=== PATIENT | female | born 1980 | race Caucasian/White ===

== ENCOUNTER 2021-02-27 03:00 | Observation (INO) | payer BC ==
[2021-02-27] MEDS ORDERED: ACETAMINOPHEN 1000 MG/100 ML VIAL IVPB ONE (03:37)
[2021-02-27] MEDS ORDERED: ONDANSETRON 4 MG/2 ML VIAL IVPUSH ONE (03:37)
[2021-02-27] MEDS ORDERED: ACETAMINOPHEN INJECTION 100 ML IVPB ONE (03:44)
[2021-02-27] MEDS ORDERED: ONDANSETRON 4 MG/2 ML VIAL ONE (03:44)
[2021-02-27 03:50] LABS: BASO % 0.2 % (0-2.0); EOS % 0.2 % (0-4.5); HEMATOCRIT 37.5 % (32.4-45.2); HEMOGLOBIN 12.6 GM/dL (10.7-15.3); MCH 29.4 pg (25.7-33.7); MCHC 33.7 g/dl (32.0-36.0); MEAN CELL VOLUME 87.3 fl (80-96); MEAN PLT VOLUME 8.4 fl (7.5-11.1); MONO % 3.6 % (3.8-10.2); PLATELET COUNT 376 10^3/uL (134-434); RBC 4.29 M/mm3 (3.60-5.2); RDW 13.2 % (11.6-15.6); WHITE BLOOD COUNT 11.6 K/mm3 (4.0-10.0)
[2021-02-27] MEDS ORDERED: SODIUM CHLORIDE 0.9% 500 ML INFUS.BAG IV ONE (03:55)
[2021-02-27 04:15] LABS: ALBUMIN 4.1 g/dl (3.4-5.0); BILIRUBIN,TOTAL 0.4 mg/dL (0.2-1); CALCIUM 8.9 mg/dL (8.5-10.1); CREATININE 1.2 mg/dL (0.55-1.3); TOT PROT 8.1 g/dl (6.4-8.2)
[2021-02-27] MEDS ORDERED: CEFTRIAXONE 1 GM in DEXTROSE 5%-WATER - 100 ML IVPB ONE (04:53)
[2021-02-27] MEDS ORDERED: CEFTRIAXONE 1 GM/50 ML BAG ONE (04:55)
[2021-02-27 05:00] LABS: EPI CELLS 23 /uL (0-25.1); HCG,QUALITATIVE URINE Negative; HYALINE CASTS 1 /uL (0-3.1); PH,URINE 6.5 (5.0-8.0); URINE APPEARANCE CLEAR; URINE BACTERIA 369 /uL (0-1359); URINE BILIRUBIN NEGATIVE (NEGATIVE); URINE COLOR YELLOW; URINE GLUCOSE (UA) NEGATIVE (NEGATIVE); URINE KETONE NEGATIVE (NEGATIVE); URINE LEUK ESTERASE NEGATIVE (NEGATIVE); URINE NITRITE NEGATIVE (NEGATIVE); URINE PROTEIN NEGATIVE (NEGATIVE); URINE RBC 151 /uL (0-23.9); URINE WBC 18 /uL (0-25.8)
[2021-02-27] MEDS ORDERED: KETOROLAC TROMETHAMINE 15 MG/ML VIAL IVPUSH ONE (05:12)
[2021-02-27] MEDS ORDERED: KETOROLAC TROMETHAMINE 15 MG/ML VIAL ONE (05:19)
[2021-02-27 08:49] LABS: INR 1.03 (0.83-1.09); PROTHROMBIN TIME (PATIENT) 12.1 SEC (9.7-13.0)
[2021-02-27 08:51] LABS: ACTIVATED PTT 26.3 SECONDS (25.2-36.5)
[2021-02-27] MEDS: TAMSULOSIN HCL 0.4 MG CAP PO SCH (09:43)
[2021-02-27 11:37] VITALS: BMI 43.7
[2021-02-27] MEDS: SODIUM CHLORIDE 1,000 ML IV SCH (16:30)
[2021-02-27] MEDS: HYDROCHLOROTHIAZIDE 25 MG TABLET (FP) PO SCH (16:30)
[2021-02-27] MEDS: KETOROLAC TROMETHAMINE 15 MG/ML VIAL IVPUSH PRN (21:06)
[2021-02-28 08:48] LABS: BASO % 0.2 % (0-2.0); EOS % 1.4 % (0-4.5); HEMATOCRIT 32.1 % (32.4-45.2); LYMPH % 35.9 % (8-40); MCH 30.1 pg (25.7-33.7); MCHC 34.2 g/dl (32.0-36.0); MEAN CELL VOLUME 88.1 fl (80-96); MEAN PLT VOLUME 8.8 fl (7.5-11.1); MONO % 4.9 % (3.8-10.2); NEUT % 57.6 % (42.8-82.8); PLATELET COUNT 288 10^3/uL (134-434); RBC 3.64 M/mm3 (3.60-5.2); WHITE BLOOD COUNT 6.5 K/mm3 (4.0-10.0)
[2021-02-28] MEDS: SODIUM CHLORIDE 1,000 ML IV SCH (09:23)
[2021-02-28] MEDS: TAMSULOSIN HCL 0.4 MG CAP PO SCH (09:23)
[2021-02-28 09:31] LABS: ALBUMIN 2.9 g/dl (3.4-5.0); BILIRUBIN,TOTAL 0.4 mg/dL (0.2-1); CREATININE 0.7 mg/dL (0.55-1.3); MAGNESIUM 2.3 mg/dL (1.8-2.4); PHOSPHOROUS 2.7 mg/dL (2.5-4.9); TOT PROT 6.3 g/dl (6.4-8.2)
[2021-02-28] MEDS ORDERED: CEFTRIAXONE 1 GM in DEXTROSE 5%-WATER - 50 ML IVPB SCH (10:00)
[2021-02-28] MEDS ORDERED: DEXTROSE 5%-WATER - 50 ML IVPB ONE (11:32)
[2021-02-28] MEDS ORDERED: cefTRIAXone SODIUM 1 GM VIAL ONE (11:32)
[2021-02-28] MEDS: HYDROCHLOROTHIAZIDE 25 MG TABLET (FP) PO SCH (11:51)
[2021-02-28] MEDS: KETOROLAC TROMETHAMINE 15 MG/ML VIAL IVPUSH PRN (11:59)
[2021-02-28 15:19] VITALS: BP 125/66; PULSE 74; TEMP 98.5
== END 2021-02-28 16:28 | disposition home or self-care (01) ==
LOC: JER 03:00 → UNDOADMOB 04:53 → JERBED 04:53 → INTOOBSV 04:53 → JERBED 08:24 → J6S 10:10
PROVIDERS: ADMIT Internal Medicine; ATTEND Nurse Practitioner Acute Care
PROC: 3E0337Z Introduction of Electrolytic and Water Balance Substance into Peripheral Vein, Percutaneous Approach (ICD-10-PCS; principal; 2021-02-27)
PROC: 3E033NZ Introduction of Analgesics, Hypnotics, Sedatives into Peripheral Vein, Percutaneous Approach (ICD-10-PCS; 2021-02-27)
PROC: 3E03329 Introduction of Other Anti-infective into Peripheral Vein, Percutaneous Approach (ICD-10-PCS; 2021-02-27)
PROC: 3E0333Z Introduction of Anti-inflammatory into Peripheral Vein, Percutaneous Approach (ICD-10-PCS; 2021-02-27)
DX: N13.2 Hydronephrosis with renal and ureteral calculous obstruction (principal); N39.0 Urinary tract infection, site not specified; R11.2 Nausea with vomiting, unspecified; R19.7 Diarrhea, unspecified; R10.31 Right lower quadrant pain; Z86.16 Personal history of COVID-19; I10 Essential (primary) hypertension; E66.01 Morbid (severe) obesity due to excess calories; Z68.41 Body mass index [BMI] 40.0-44.9, adult; Z29.9 Encounter for prophylactic measures, unspecified
CPT/HCPCS: 36415; 74176-TC; 80053; 81003; 83735; 84100; 84703; 85025; 85610; 85730; 86850; 86900; 86901; 87086; 93005; 93010; 99285-25; C9803; G0378; J0131; U0003; U0005

== ENCOUNTER 2024-08-20 15:35 | Emergency (ER) | payer BC ==
[2024-08-20 15:43] VITALS: BP 149/77; PULSE 90; RESP 20; TEMP 98.7; BMI 41.5
[2024-08-20 16:58] LABS: ABSOLUTE IMMATURE GRANULOCYTES 0.03 x10^3/uL (0.0-0.031); BASOPHILS # 0.03 x10^3/uL (0.01-0.08); EOSINOPHIL % 0.8 % (0.7-5.8); HEMATOCRIT 37.8 % (34.1-44.9); HEMOGLOBIN 12.6 g/dL (11.2-15.7); MCHC 33.3 g/dl (32.2-35.5); MEAN CELL VOLUME 86.5 fl (79.4-94.8); MEAN PLT VOLUME 10.5 fl (9.4-12.3); MONOCYTE # 0.65 x10^3/uL (0.24-0.86); PLATELET COUNT 357 x10^3/uL (182-369); RDW 12.3 % (12.2-17.1)
[2024-08-20 17:14] LABS: CHLORIDE 102 mmol/L (98-107); POTASSIUM 3.5 mmol/L (3.5-5.1); SODIUM 138 mmol/L (136-145)
[2024-08-20 17:17] LABS: ALBUMIN 3.8 g/dl (3.4-5.0); ANION GAP 9 mmol/L (4-13); BLOOD UREA NITROGEN 14.1 mg/dL (7-18); CALCIUM 10.1 mg/dL (8.5-10.1); CO2 26 mmol/L (21-32); GLUCOSE,RANDOM 106 mg/dL (74-106)
[2024-08-20 17:20] LABS: CREATININE 0.9 mg/dL (0.55-1.3); SGOT/AST 11 U/L (15-37); SGPT/ALT 17 U/L (13-61)
[2024-08-20 17:22] LABS: BILIRUBIN,TOTAL 0.4 mg/dL (0.2-1); TOT PROT 7.6 g/dl (6.4-8.2)
[2024-08-20 17:23] LABS: ALK PHOS 55 U/L (45-117)
[2024-08-20 18:11] LABS: HCV DIAGNOSTIC IN-HOUSE W/RFLX NON-REACTIVE (NONREACTIVE); HIV INTERPRETATION NEGATIVE (NEGATIVE)
== END 2024-08-20 17:49 | disposition home or self-care (01) ==
LOC: JER 15:35
DX: I10 Essential (primary) hypertension (principal); R51.9 Headache, unspecified; R07.9 Chest pain, unspecified; M79.602 Pain in left arm
CPT/HCPCS: 36415; 80053; 82550; 84484; 85025; 86803; 87389; 93005; 93010; 99284-25